=== PATIENT | female | born 1940 | race Caucasian/White ===

== ENCOUNTER 2018-02-03 16:28 | Emergency (ER) | payer MEDICARE, OTHER ==
[2018-02-03] MEDS ORDERED: buPROPion 100 MG Tab.SR PO ONE (17:17)
[2018-02-03] MEDS ORDERED: Metoprolol Succinate 50 MG Tab.ER PO ONE (17:17)
--- NOTE | 2018-02-03 17:32 | EDM.PDOC ---
ED HPI GENERAL MEDICAL PROBLEM - General Chief Complaint: Cardiovascular Problem Stated Complaint: ELEVATED BP AND PULSE Time Seen by Provider: 02/03/18 16:55 Source of Information: Reports: Patient, Family History Limitations: Reports: No Limitations - History of Present Illness INITIAL COMMENTS - FREE TEXT/NARRATIVE: 77-year-old female was been taking her blood pressure for the last 2 days, her heart felt like it was beating heavy overnight and this morning and she noticed her systolic blood pressure was running around 200 today. She felt like her pulse was racing as well as high as 120 so came in to be checked. After visiting with her for a while she admits that she got a phone call from her estranged son 2 days ago that was very upsetting. We also discovered that 6 weeks ago she thought she was taking too much medicine so her Wellbutrin and metoprolol were discontinued which I think would be beneficial for her right now. She is still on amlodipine and took an extra dose, her blood pressure right now is 181/69. She is in a sinus rhythm rate 105. She denies any chest pain, shortness of breath but does feel anxious. Onset: Gradual Severity: Moderate Associated Symptoms: Reports: Other (Some difficulty sleeping). Denies: Confusion, Chest Pain, Cough, Fever/Chills, Malaise - Related Data Allergies Allergy/AdvReac Type Severity Reaction Status Date / Time bee venom protein (honey bee) Allergy Anaphylactic Verified 02/03/18 16:49 Shock lisinopril Allergy Cough Verified 02/03/18 16:49 Home Meds: Home Meds Anastrozole [Arimidex] 1 mg PO DAILY 02/03/18 [History] Gabapentin [Neurontin] 300 mg PO QAM 02/03/18 [History] Gabapentin [Neurontin] 600 mg PO BEDTIME 02/03/18 [History] Losartan [Cozaar] 100 mg PO DAILY 02/03/18 [History] amLODIPine [Norvasc] 10 mg PO DAILY 02/03/18 [History] traZODone 50 mg PO BEDTIME 02/03/18 [History] Past Medical History HEENT History: Reports: Impaired Vision Cardiovascular History: Reports: Hypertension Oncologic (Cancer) History: Reports: Breast - Infectious Disease History Infectious Disease History: Reports: Chicken Pox, Measles, Mumps - Past Surgical History GI Surgical History: Reports: Appendectomy Musculoskeletal Surgical History: Reports: Shoulder Surgery Social & Family History - Tobacco Use Smoking Status *Q: Former Smoker Used Tobacco, but Quit: Yes Month/Year Tobacco Last Used: many years ago - Caffeine Use Caffeine Use: Reports: Coffee, Soda - Recreational Drug Use Recreational Drug Use: No ED ROS GENERAL - Review of Systems Review Of Systems: See Below Constitutional: Denies: Fever, Chills HEENT: Reports: No Symptoms Respiratory: Denies: Shortness of Breath Cardiovascular: Reports: Palpitations. Denies: Chest Pain GI/Abdominal: Denies: Abdominal Pain, Nausea, Vomiting Skin: Reports: No Symptoms Neurological: Denies: Dizziness, Headache ED EXAM, GENERAL - Physical Exam Exam: See Below Exam Limited By: No Limitations General Appearance: Alert, No Apparent Distress, Anxious Respiratory/Chest: No Respiratory Distress, Lungs Clear Cardiovascular: Regular Rate, Rhythm. No: Extra Beats GI/Abdominal: Non-Tender Extremities: No: Pedal Edema Neurological: Alert, Oriented Psychiatric: Anxious Skin Exam: Warm, Dry Course - Vital Signs Last Recorded V/S: Last Vital Signs Temp 95.8 F 02/03/18 17:20 Pulse 109 H 02/03/18 17:20 Resp 16 02/03/18 17:20 BP 182/71 H 02/03/18 17:20 Pulse Ox 94 L 02/03/18 17:20 - Orders/Labs/Meds Meds: Medications Discontinued Medications Generic Name Dose Route Start Last Admin Trade Name Alexi PRN Reason Stop Dose Admin Bupropion HCl 100 mg 02/03/18 17:17 Wellbutrin Sr PO 02/03/18 17:18 ONETIME ONE Metoprolol Succinate 50 mg 02/03/18 17:17 Toprol Xl PO 02/03/18 17:18 ONETIME ONE - Re-Assessments/Exams Free Text/Narrative Re-Assessment/Exam: 02/03/18 17:30 Had a long discussion with the patient and the more we talked the more convinced she was that she needed to be back on metoprolol and Wellbutrin. I think she is probably right. We gave her a dose of metoprolol succinate 50 mg, and long-acting Wellbutrin 100 mg and I wrote her prescriptions for 20 more doses. She is going to recheck with her primary care provider when she gets back home in one week. Departure - Departure Disposition: Home, Self-Care 01 Condition: Good Clinical Impression: Essential hypertension, Anxiety about health Instructions: Hypertension, [id number] Referrals: PCP,None [Primary Care Provider] - Care Plan Goals: Continue your regular medications and start the metoprolol and Wellbutrin as prescribed. Enjoy your vacation, recheck with your primary provider when you get home. You can always return here to the emergency room if you feel you're worsening or develop other concerns.
== END 2018-02-03 18:00 | disposition home or self-care (01) ==
LOC: JP.ED 16:28
DX: I10 Essential (primary) hypertension (principal); F41.9 Anxiety disorder, unspecified; Z87.891 Personal history of nicotine dependence; Z79.899 Other long term (current) drug therapy; Z91.030 Bee allergy status; Z88.8 Allergy status to other drugs, medicaments and biological substances
CPT/HCPCS: 99284; A9270